=== PATIENT | male | born 1960 | race Caucasian/White ===

== ENCOUNTER 2020-03-16 20:07 | Inpatient (IN) | payer OTHER ==
[~2020-03-16] VITALS: Ht 177.8 cm; Wt 92.5 kg
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
[2020-03-17] MEDS ORDERED: NORCO 5-325 TA1 EACH PO (00:02)
--- NOTE | 2020-03-17 01:30 | NUR ---
PT ADMITTED FROM ED TO ROOM 115. A/O, REQUIRED ASSISTANCE MOVING FROM STRETCHER TO BED. RIGHT ARM IN SLING, PAIN IN HIS RIGHT LEG.
--- NOTE | 2020-03-17 02:00 | NUR ---
PT AT BEDSIDE TO VOID, BEARING LITTLE WEIGHT ON RIGHT SIDE. BACK TO BED, RAMONA FAIR. ASSISTED TO REPOSITION FOR COMFORT. UA SENT TO LAB. PT ALERT AND ORIENTED. DENIES PRN FOR PAIN AT THIS TIME. RIGHT ARM IN SLING. IVF INFUSING. ORIENTATION TO ROOM AND NURSE CALL LIGHT PROVIDED. PT DENIES QUESTIONS OR CONCERNS. CALL LIGHT IN REACH.
--- NOTE | 2020-03-17 04:20 | NUR ---
CALL LIGHT ANSWERED. PT VOID 850 ML CL YELLOW URINE. PRN GIVEN FOR RIGHT SHOULDER/ARM PAIN. PT DENIES FURTHER NEEDS. CALL LIGHT IN REACH.
--- NOTE | 2020-03-17 06:43 | NUR ---
PRN GIVEN FOR RIGHT ARM/GENERALIZED PAIN. RIGHT ARM IN SLING, REPOSITIONED WITH PILLOW. CMS INTACT. IVF INFUSING. PT REMAINS NPO, CHAPSTICK PROVIDED. PT EDUCATION PACKET PROVIDED. PT DENIES FURTHER NEEDS. CALL LIGHT IN REACH.
--- NOTE | 2020-03-17 07:28 | NUR ---
Pt awake, a&ox4, respirations are even and non labored. Pt recently medicated for pain, he reports his pain is improving. Sling intact to right arm, cms intact. at bedside. Pt has no needs at this time. Call light within reach.
--- NOTE | 2020-03-17 09:20 | NUR ---
MED REC COMPLETE
--- NOTE | 2020-03-17 09:47 | NUR ---
Pt eating breakfast in chair. Doing well eating independently, needs minimal assistance cutting food up. Pt in good spirits and is looking forward to seeing Dr. Garcia for consultation. Reports pain is tolerable at this time. Personal supplies and call light within reach.
--- NOTE | 2020-03-17 10:09 | NUR ---
Oxycodone 5mg po administered for reports of 5/10 right arm pain.
--- NOTE | 2020-03-17 10:40 | NUR ---
PATIENT IN CHAIR, VISITOR IN ROOM. CALL LIGHT IN REACH. NO FURTHER NEEDS AT THIS TIME.
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
--- NOTE | 2020-03-17 11:15 | NUR ---
Toradol 30mg IVP administered for reports of 7/10 generalized pain after walking with PT.
--- NOTE | 2020-03-17 13:55 | NUR ---
Oxycodone 10mg po administered for reports of 6/10 right arm/shoulder pain.
--- NOTE | 2020-03-17 17:36 | NUR ---
PATIENT WENT TO BATHROOM THEN AMBULATED IN HALLWAY FROM PATIENTS ROOM TO CCU DOORS AND BACK, 1PA FWW GAITBELT. PATIENT NOW BACK TO ROOM SITTING UP IN CHAIR FOR DINNER, IN ROOM. FRESH WATER GIVEN. CALL LIGHT IN REACH. NO FURTHER NEEDS AT THIS TIME.
--- NOTE | 2020-03-17 18:29 | NUR ---
PATIENT SITTING UP IN CHAIR. IN ROOM. VITAL SIGNS AND I&O DONE. CALL LIGHT WITHIN REACH. NO OTHER NEEDS AT THIS TIME
--- NOTE | 2020-03-17 19:42 | NUR ---
REPORT RECEIVED FROM DAY SHIFT RN. PT SITTING IN RECLINER, ALERT AND ORIENTED. FRESH WATER GIVEN. REPORTS HE IS COMFORTABLE, DENIES PRN FOR PAIN AT THIS TIME. NO FURTHER NEEDS. CALL LIGHT IN REACH. WHITE BOARD UPDATED.
--- NOTE | 2020-03-17 21:00 | NUR ---
EVENING ASSESSMENT COMPLETE. PRN GIVEN FOR RIGHT ARM PAIN. RIGHT ARM IN SLING. CMS INTACT. PT REMAINS IN RECLINER, REPORTS HE IS COMFORTABLE. EVENING SNACK AND FRESH WATER PROVIDED. PT DENIES QUESTIONS OR CONCERNS AT THIS TIME. CALL LIGHT IN REACH.
--- NOTE | 2020-03-17 22:50 | NUR ---
SCHEDULED MEDS ADMINISTERED PER EMAR. PT UP TO BR WITH SBA AND FWW TO VOID. GAIT WEAK BUT STEADY. BACK TO BED, RAMONA WELL. NO FURTHER NEEDS AT THIS TIME. CALL LIGHT IN REACH.
--- NOTE | 2020-03-18 01:28 | NUR ---
PT RESTING IN BED WITH EYES CLOSED, NAD.
--- NOTE | 2020-03-18 04:35 | NUR ---
PRN GIVEN FOR RIGHT ARM PAIN. RIGHT ARM IN SLING. CMS INTACT. PT DENIES FURTHER NEEDS. CALL LIGHT IN REACH.
--- NOTE | 2020-03-18 06:27 | NUR ---
SCHEDULED MEDS ADMINISTERED PER EMAR. PT UP TO BR WITH SBA AND FWW. GAIT STEADY. BACK TO BED, RAMONA WELL. SCD'S IN PLACE. VS AND I&O COMPLETE. COFFEE PROVIDED.
--- NOTE | 2020-03-18 07:58 | NUR ---
PT AWAKE WATCHING TV, IA AT THE BEDSIDE AT THIS TIME. PT IS CURRENTLY EATTING BKF.
--- NOTE | 2020-03-18 09:47 | NUR ---
PATIENT UP IN CHAIR. VITALS AND I&OS DONE AND CHARTED. WATER REFILLED. CALL LIGHT IN REACH
[2020-03-18] MEDS ORDERED: TYLENOL EXTRA500 MG PO (10:06)
[2020-03-18] MEDS ORDERED: OXYCODONE HCL5 MG PO (10:06)
[2020-03-18] MEDS ORDERED: MOTRIN IB200 MG PO (10:06)
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
--- NOTE | 2020-03-18 10:50 | NUR ---
SPOKE WITH PATIENT IN ROOM. DR BRENNER HAS WRITTEN A RX TO RENT A WALKER. DISCUSSED WITH PATIENT HE CAN DO THIS OR HE CAN CALL [facility] TO BORROW ONE SINCE HE WON'T NEED IT VERY LONG. HE STATES HE KNOWS WHERE THEY ARE AND HE WILL CALL THEM. HE STATES HE WOULD RATHER BORROW THAN HAVE TO PAY AND HE THINKS HE WILL ONLY NEED IT A COUPLE WEEKS. HE FEELS SAFE TO GO HOME AND HAS NO OTHER QUESTIONS AT THIS TIME. CASE MANAGEMENT WILL FOLLOW NEEDED.
--- NOTE | 2020-03-18 11:30 | NUR ---
PT MEDICATED WITH 10MG OXY PO AT THIS TIME. THIS WAS GIVEN TO HELP WITH TRAVEL TO HOME AND TO HOLD HIM OVER TILL HIS RX ARE PICKED UP LATER TODAY. PT TO BE DISCHARGED THIS AM.
--- NOTE | 2020-03-18 12:09 | NUR ---
PT DISCHARGED TO HOME, ALL PERSONAL BELONGINGS AND CLOTHING RETURNED. PT UNDERSTOOD DISCHARGE INSTRUCTIONS. CAME FOR PT THIS TIME. PT WENT OUT VIA WC WITH NURSING STAFF.
--- NOTE | 2020-03-18 12:31 | NUR ---
PT SITTING IN CHAIR, TV ON. HE IS ALERT, ORIENTED AND WAITING FOR DC. PT HAS R ARM IN SLING. 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 HAD A GOOD VISIT, ALL PT QUESTIONS ASKED AND ANSWERED. PT REQUESTED PRAYER, LEFT G.POST.
== END 2020-03-18 11:45 | disposition home or self-care (01) | DRG 206 ==
LOC: ED 20:07 → MS 20:09
PROVIDERS: ADMIT Surgery
DX: S22.31XA Fracture of one rib, right side, initial encounter for closed fracture (principal); S32.89XA Fracture of other parts of pelvis, initial encounter for closed fracture; S42.021A Displaced fracture of shaft of right clavicle, initial encounter for closed fracture; S50.311A Abrasion of right elbow, initial encounter; Z20.828 Contact with and (suspected) exposure to other viral communicable diseases; V86.56XA Driver of dirt bike or motor/cross bike injured in nontraffic accident, initial encounter
CPT/HCPCS: 71101; 71260; 73030; 73502; 74177; 80053; 81001; 82150; 83605; 85025; 90471; 90715; 96361; 96374; 97110; 97116; 97161; 99285-25; C9803; G0378; G0480; J1885; J2270; J7030; Q9967; U0002